=== PATIENT | female | born 1960 | race Caucasian/White ===

== ENCOUNTER 2021-05-30 08:18 | Outpatient (RCR) | payer OTHER, SELFPAY ==
[2021-05-30 08:51] VITALS: BP 132/80; PULSE 66; RESP 20; TEMP 36.1; O2SAT 99
[2021-05-30] MEDS: ACETAMINOPHEN 325 MG TABLET 650 MG PO (09:03)
[2021-05-30] MEDS: diphenhydrAMINE HCl CAP 25 MG CAPSULE PO (09:03)
[2021-05-30] MEDS: FAMOTIDINE 20 MG TABLET PO (09:03)
[2021-05-30 10:28] VITALS: BP 138/76; PULSE 58; O2SAT 100
== END 2021-05-30 17:00 ==
LOC: AMCINF 08:18
PROVIDERS: PCP Nurse Practitioner; Visit Provider Internal Medicine Hematology & Oncology
DX: U07.1 COVID-19 (principal); I10 Essential (primary) hypertension
CPT/HCPCS: A9270; M0247; Q0247